=== PATIENT | female | born 1940 | race Caucasian/White ===

== ENCOUNTER → 2023-10-13 13:53 | Outpatient (REF) | payer MEDICARE, SELFPAY | LOC: HWRAD 13:53 | PROVIDERS: ATTENDING PHYSICIAN Student in an Organized Health Care Education/Training Program | DX: R10.31 Right lower quadrant pain (principal) | CPT/HCPCS: 74176 ==

== ENCOUNTER 2024-03-25 16:55 | Emergency (ER) | payer MEDICARE, SELFPAY ==
[2024-03-25 17:01] VITALS: BP 109/66
--- NOTE | 2024-03-25 17:05 | ED.GENMED ---
ED Provider Triage
<Merly Ramirez SUPERINTENDENT MAINTENANCE - Last Filed: 03/25/24 17:16>
-
Patient seen by provider in Triage?: Seen in Triage
Attestation: A medical screening examination has been initiated by a qualified medical provider. Based on the assessment performed at this time, it has been determined that an emergent medical condition may exist and the patient has been informed
that further medical evaluation and possible additional diagnostic testing may be needed.
HPI: 83-year-old female with abdominal pain since 2021, here today sent by PCP Dr. Sher and sent here for 'my intestines are not moving and whenever I try to eat abdominal pain starts and abdomen gets hard.' States has to take laxatives to have
BM. Last BM 3 days ago after double dose MOM. Has had intermittent nausea, no vomiting.
GENERAL: Alert , in no apparent distress
EYE: No visual abnormalities.
NECK: Trachea midline
ENT: No visible abnormalities.
LUNGS: No acute respiratory distress
NEUROLOGICAL: Alert and oriented
SKIN: Skin intact. No visible changes.
MUSCULOSKELETAL: Moving extremities normally
PSYCH: Normal and appropriate interaction.
This is a medical evaluation conducted in person to initiate diagnostic evaluation and provide initial therapeutics. Please see further documentation by the treating clinician.
History of Present Illness
<Merly Ramirez SUPERINTENDENT MAINTENANCE - Last Filed: 03/25/24 17:16>
General
Chief Complaint: Abdominal Pain
Time Seen by Provider: 03/25/24 19:28
<RENAY Wood - Last Filed: 03/25/24 22:34>
General
Source: patient
Exam Limitations: none
History of Present Illness
History of Present Illness:
This is a 83 year old female that comes in with c/o constipation. States that she has had constipation issues since she was in grade school. States that for the past 2 months it has gotten worse. States that she feels like nothing is moving. States
that she gets a Knife like pain in the right sided of the abd, States that she is from [place] and today she sent to see a doctor at [facility] and also a [employer] physician. States that she was told to come to the ER as over the past 3 days her
pain has gotten worse. States that the last night she remembers having a normal BM was 6-7 months ago. States that she just has diarrhea. States that she has also felt nauseated. Denies any fever, chills, chest pain, SOB, vomiting, headache,
dizziness, urinary burning.
Past History
<RENAY Wood - Last Filed: 03/25/24 22:34>
Past History
ED Past Medical History: Other (Constipation)
ED Past Surgical History: Appendectomy and Gynecological (Right ovary removed)
Social History
Tobacco: Non-smoker
Alcohol: None
Personal:
Living: alone
Review of Systems
<RENAY Wood - Last Filed: 03/25/24 22:34>
Review of Systems
All Other Systems: ROS reviewed and negative except as documented in HPI and ROS
Constitutional: Reports no symptoms; Denies fever or chills
EENT: Reports no symptoms
Respiratory: Reports no symptoms; Denies cough or trouble breathing
Cardiac: Reports no symptoms; Denies chest pain
ABD/GI: Reports abdominal pain, nausea and diarrhea; Denies vomiting
: Reports no symptoms; Denies dysuria, frequency or urgency
Musculoskeletal: Reports no symptoms
Skin: Reports no symptoms
Neurological: Reports no symptoms; Denies dizzy or headache
Psychiatric: Reports no symptoms
Phy Exam
<RENAY Wood - Last Filed: 03/25/24 22:34>
General Physical Exam
General Presentation: no apparent distress
General age: appears stated age
General Skin: warm and dry
General Habitus: elderly
General Mental: alert
General Hydration: dry mucous membranes
ENT Exam
ENT Exam: TM's normal, pharynx normal and neck supple
Eye Exam
Eye Exam: EOMI
Cardiovascular Exam
Cardiovascular Exam: regular rate/rhythm, no edema and normal peripheral pulses
Pulmonary Exam
Pulmonary Exam: lungs clear, no respiratory distress, no rales, chest non tender, no crackles, no rhonchi, no wheezing and no cough
Gastrointestinal Exam
Gastrointestinal Exam: normal bowel sounds, soft, no organomegaly, no pulsatile mass, non distended and tender (Right sided abd tenderness with palpation)
Musculoskeletal Exam
Musculoskeletal Exam: full ROM and no edema
Skin Exam
Skin Exam: normal color, warm/dry, no rash and no petechia
Psychiatric Exam
Psychiatric Exam: normal mood/affect
Course
<Merly Ramirez NP - Last Filed: 03/25/24 17:16>
Orders/Labs/Results
Orders:
Orders
03/25/24 17:06
Iohexol [Omnipaque] See Protocol PO NOW STA
03/25/24 17:07
CT Abd/pel (oral only)-[facility] Only Urgent
Comment: allergic to IV contrast - anaphylaxis
Reason For Exam: Righ abd pain.
03/25/24 17:14
Complete Blood Count/With Diff Urgent
Comprehensive Metabolic Panel Urgent
Lipase Urgent
03/25/24 19:36
Urinalysis Reflex To Culture Urgent
Date Specimen was Collected: 03/25/24
Time Specimen was Collected: 19:35
Urine Microscopic Reflex Cult Urgent
03/25/24 21:30
Enema- Treatment ONCE
Type: Milk of Molasses
Abnormal Lab Results
03/25/24 03/25/24
17:14 19:36
MCHC 32.6 L g/dL
(33.0-37.0)
MPV 11.0 H fL
(7.4-10.4)
Creatinine 1.4 H mg/dL
(0.6-1.0)
Glucose 106 H mg/dl
(70-99)
Leukocyte Esterase Rfl Trace A
(Negative)
03/25/24 17:14
03/25/24 17:14
Vital Signs
Initial and Last Documented VS:
Initial Vital Signs
Temp Pulse Resp BP Pulse Ox
98.4 F 80 18 109/66 96
03/25/24 17:01 03/25/24 17:01 03/25/24 17:01 03/25/24 17:01 03/25/24 17:01
Last Documented Vital Signs
Temp Pulse Resp BP Pulse Ox
97.7 F 71 18 119/63 98
03/25/24 19:30 03/25/24 19:30 03/25/24 17:01 03/25/24 21:13 03/25/24 21:16
<RENAY Wood - Last Filed: 03/25/24 22:34>
Orders/Labs/Results
Orders:
Orders
03/25/24 17:06
Iohexol [Omnipaque] See Protocol PO NOW STA
03/25/24 17:07
CT Abd/pel (oral only)-[facility] Only Urgent
Comment: allergic to IV contrast - anaphylaxis
Reason For Exam: Righ abd pain.
03/25/24 17:14
Complete Blood Count/With Diff Urgent
Comprehensive Metabolic Panel Urgent
Lipase Urgent
03/25/24 19:36
Urinalysis Reflex To Culture Urgent
Date Specimen was Collected: 03/25/24
Time Specimen was Collected: 19:35
Urine Microscopic Reflex Cult Urgent
03/25/24 21:30
Enema- Treatment ONCE
Type: Milk of Molasses
Abnormal Lab Results
03/25/24 03/25/24
17:14 19:36
MCHC 32.6 L g/dL
(33.0-37.0)
MPV 11.0 H fL
(7.4-10.4)
Creatinine 1.4 H mg/dL
(0.6-1.0)
Glucose 106 H mg/dl
(70-99)
Leukocyte Esterase Rfl Trace A
(Negative)
03/25/24 17:14
03/25/24 17:14
Cr slightly elevated. Glucose nonfasting. Lipase normal at 76, Urine negative for infection.
Vital Signs
Initial and Last Documented VS:
Initial Vital Signs
Temp Pulse Resp BP Pulse Ox
98.4 F 80 18 109/66 96
03/25/24 17:01 03/25/24 17:01 03/25/24 17:01 03/25/24 17:01 03/25/24 17:01
Last Documented Vital Signs
Temp Pulse Resp BP Pulse Ox
97.7 F 71 18 119/63 98
03/25/24 19:30 03/25/24 19:30 03/25/24 17:01 03/25/24 21:13 03/25/24 21:16
<RENAY Wood - Last Filed: 03/25/24 22:34>
MDM/Problems Addressed
Differential Diagnosis Includes:
Bowel obstruction. Adhesions
MDM/Problems Addressed:
This is a 83 year old female that comes in with c/o constipation. States that she just has diarrhea and has not have a normal stool in the past 6-7 months.
Will get labs and CT scan. Will give IV fluids and age urine.
Back into see patient. Explained that her CT scan does show constipation. Rectal exam done and there was not stool in the rectal vault. Will give patient a milk and molasses enema. Explained to patient that she really needs to get on a Bowl regiment
and may need to see the GI specialist for further evaluation.
Patient had Maximum results from enema. Will discharge home. Patient also states that the DRAPERY AND UPHOLSTERY ESTIMATOR gave her Magnesium tables to will hold off on magnesium Citrate.
Chronic conditions affecting care: Previous abdomnial surgery
Acute Exacerbation and/or Progression of Chronic Illness: Previous abdomnial surgery
<RENAY Wood - Last Filed: 03/25/24 22:34>
*Radiology
Radiology exam reviewed: radiology read reviewed (CT-Constipation with moderate colonic fecal burden. No bowel obstruction. NO lacute inflammatory process withint the abdomen or pelvis. No obstructing uropathy. )
*Pulse Oximetry
Patient hypoxic: no
*EKG
Interpreted by ED Provider?: NA
Rate: EKG- N/A
*Header Setup Operator Interpretation
Rate: Header Setup Operator- N/A
*Critical Care Note
Total Time (30-74mins, 75-104mins- exclusive of procedures): Not Applicable
ED Attending Note
<Merly Rmairez NP - Last Filed: 03/25/24 17:16>
-
Portions of this chart may have been created with voice recognition software.� Occasional wrong word or��sound alike� substitutions may have occurred due to the inherent limitations of voice recognition software.
Discharge Plan
Departure
Patient Disposition: Home (Routine Discharge)
Date of Disposition: 03/25/24
Time of Disposition: 22:29
Patient with high blood pressure during this ER visit?: No
Condition: Good
Covid-19: Not Applicable
Discharge Problem:
Constipation, chronic
Instructions: Constipation, Adult (DC)
Referrals:
Jatinder Burr DO [Family Provider] - Call in 1-3 days for appt
Napoleon Marlow DO [Active] - Call in 1-3 days for appt
Activity Restrictions/Additional Instructions:
As discussed, your CT scan shows that you are constipated. Your urine is negative for infection. Please increase your water intake to 8-8oz glasses daily. You may also try Prune juice mixed with apple juice in equal amounts and heat and drink daily.
Please follow up with the GI specialist for further evaluation and a possible bowel regiment. You have been given an enema here. IF YOU HAVE ANY OTHER CONCERNS PLEASE RETURN TO THE EMERGENCY ROOM.
Interventions
Interventions:
*Risk Screen - Suicide Last Done: 03/25/24 17:01
*General Assessment Last Done: 03/25/24 17:01
*Neglect/Abuse Screening Last Done: 03/25/24 17:01
ED- Fall Risk Assessment Last Done: 03/25/24 21:16
*ED COVID-19 Vaccine History Last Done: 03/25/24 21:16
IT-Wjtcai-Wqomerehqk Assessment Last Done: 03/25/24 21:16
Discharge Date and Time
Print Language: OMANI
[2024-03-25] MEDS: OMNIPAQUE 50 ML PO (17:17)
[2024-03-25 17:27] LABS: % Basophils 0.6 % (0-2); % Eosinophils 1.1 % (0-6); % Immature Granulocytes 0.2 % (0-0.5); % Lymphocytes 24.8 % (20.5-51.1); % Monocytes 7.6 % (1.7-9.3); % Neutrophils 65.7 % (42.2-75.2); Absolute Eosinophils 0.1 10^3/uL (0-0.7); Absolute Lymphocytes 1.5 10^3/uL (1.2-3.4); Absolute Monocytes 0.5 10^3/uL (0.1-0.6); Absolute Neutrophils 4.1 10^3/uL (1.4-6.5); Hematocrit 41.4 % (37.0-47.0); Hemoglobin 13.5 g/dL (12.0-16.0); Mean Corp Hgb Conc. 32.6 g/dL (33.0-37.0); Nucleated Red Blood Cells % 0 %; Platelet Count 187 10^3/uL (130-400); Red Blood Cell Count 4.36 10^6/uL (4.20-5.40); Red Cell Dist. Width 12.6 % (11.5-14.5); White Blood Cell Count 6.2 10^3/uL (4.8-10.8)
[2024-03-25 17:38] LABS: ALT (SGPT) 15 U/L (0-35); AST (SGOT) 21 U/L (14-36); Alkaline Phosphatase 55 U/L (38-126); Blood Urea Nitrogen 17 mg/dl (7-17); Calcium 8.8 mg/dl (8.4-10.2); Carbon Dioxide 28 mmol/L (22-30); Chloride 104 mmol/L (98-107); Glucose 106 mg/dl (70-99); Lipase 76 U/L (23-300); Potassium 4.6 mmol/L (3.5-5.1); Sodium 140 mmol/L (135-145); Total Bilirubin 0.9 mg/dl (0.2-1.3); Total Protein 6.3 g/dl (6.3-8.2); eGFR 37.56
[2024-03-25 19:44] VITALS: BP 132/51
[2024-03-25 19:59] LABS: Urine Albumin Negative (Neg - Trace); Urine Bilirubin Negative (Negative); Urine Character Clear (Clear); Urine Color Yellow; Urine Glucose Negative (Negative); Urine Ketone Negative (Negative); Urine Leukocyte Trace (Negative); Urine Nitrite Negative (Negative); Urine Occult Blood Negative (Negative); Urine Urobilinogen Negative (Neg - 1+)
[2024-03-25 20:00] VITALS: BP 114/59
[2024-03-25 20:54] LABS: Urine Red Blood Cell 0-2 /HPF (0-2); Urine White Cell 0-2 /HPF (0-5)
[2024-03-25 21:13] VITALS: BP 119/63
[2024-03-25 21:14] VITALS: BMI 18.8
== END 2024-03-25 22:41 | disposition home or self-care (01) ==
LOC: EMR 16:55
PROVIDERS: Registered Nurse; EMERGENCY PHYSICIAN Emergency Medicine; FAMILY PHYSICIAN Student in an Organized Health Care Education/Training Program
DX: K59.09 Other constipation (principal); Z90.49 Acquired absence of other specified parts of digestive tract; Z90.721 Acquired absence of ovaries, unilateral
CPT/HCPCS: 99284; 74176; 80053; 81003; 81015; 83690; 85025

== ENCOUNTER 2024-03-28 15:17 | Emergency (ER) | payer MEDICARE, SELFPAY ==
[2024-03-28 15:37] VITALS: BP 146/75
--- NOTE | 2024-03-28 15:38 | ED.GENMED ---
ED Provider Triage
<Beverly Orlando PA-C - Last Filed: 03/28/24 15:52>
-
Patient seen by provider in Triage?: Seen in Triage
Attestation: A medical screening examination has been initiated by a qualified medical provider. Based on the assessment performed at this time, it has been determined that an emergent medical condition may exist and the patient has been informed
that further medical evaluation and possible additional diagnostic testing may be needed.
HPI: 83yoF here with constipation. Seen in ED 3 days ago for the same. CT showed moderate stool burden but otherwise negative. Had a BM after molasses enema but no BM since. C/o new LLQ pain.
GENERAL: Alert , in no apparent distress
EYE: No visual abnormalities.
NECK: Trachea midline
ENT: No visible abnormalities.
LUNGS: No acute respiratory distress
NEUROLOGICAL: Alert and oriented
SKIN: Skin intact. No visible changes.
MUSCULOSKELETAL: Moving extremities normally
PSYCH: Normal and appropriate interaction.
This is a medical evaluation conducted in person to initiate diagnostic evaluation and provide initial therapeutics. Please see further documentation by the treating clinician.
Abdominal labs ordered. Will defer repeat imaging in triage as she had a CT 3 days ago.
History of Present Illness
<Beverly Orlando PA-C - Last Filed: 03/28/24 15:52>
General
Chief Complaint: Bowel Problem
Time Seen by Provider: 03/28/24 17:47
<Cole Sims PA-C - Last Filed: 03/28/24 21:54>
General
Source: patient
Exam Limitations: none
History of Present Illness
History of Present Illness:
83-year-old female presents with increased abdominal pain and distention since visit 4 days ago. She had constipation. When she was here last she received an enema and had a large bowel movement. Since then she has not had a bowel movement but
has increased pain and distention. She denies nausea or vomiting or fever. 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 She tried using saline enema x 2 today without any relief. She notes a bulge appearance to her abdomen. No
chest pain. No other complaints at this time
Past History
<Beverly Orlando PA-C - Last Filed: 03/28/24 15:52>
Past History
ED Past Medical History: Other (Constipation)
ED Past Surgical History: Appendectomy and Gynecological (Right ovary removed)
Social History
Tobacco: Non-smoker
Alcohol: None
Personal:
Living: alone
Phy Exam
<Cole Sims PA-C - Last Filed: 03/28/24 21:54>
Physical Exam
Physical Exam:
General: Well-appearing female no respiratory distress
HEENT: Normocephalic atraumatic
Heart: Regular rate and rhythm no murmurs
Lungs: Clear no wheeze
Abdomen is soft distended tender to the right and left lower abdomen.
Extremities: No cyanosis
Course
<Beverly Orlando PA-C - Last Filed: 03/28/24 15:52>
Orders/Labs/Results
Orders:
Orders
03/28/24 16:14
Complete Blood Count/With Diff Urgent
Comprehensive Metabolic Panel Urgent
Lipase Urgent
03/28/24 18:11
CT Abd/pel (oral only)-[facility] Only Urgent
Comment:
Reason For Exam: abdominal pain
Iohexol [Omnipaque] See Protocol PO NOW STA
Abnormal Lab Results
03/28/24
16:14
MCHC 32.1 L g/dL
(33.0-37.0)
MPV 11.0 H fL
(7.4-10.4)
Potassium 5.6 H mmol/L
(3.5-5.1)
BUN 19 H mg/dl
(7-17)
Creatinine 1.1 H mg/dL
(0.6-1.0)
Total Protein 6.2 L g/dl
(6.3-8.2)
03/28/24 16:14
03/28/24 16:14
Vital Signs
Initial and Last Documented VS:
Initial Vital Signs
Temp Pulse Resp BP Pulse Ox
97.8 F 70 20 146/75 100
03/28/24 15:37 03/28/24 15:37 03/28/24 15:37 03/28/24 15:37 03/28/24 15:37
Last Documented Vital Signs
Temp Pulse Resp BP Pulse Ox
97.8 F 66 18 156/81 100
03/28/24 15:37 03/28/24 20:11 03/28/24 20:11 03/28/24 20:11 03/28/24 15:37
<Cole Sims PA-C - Last Filed: 03/28/24 21:54>
Orders/Labs/Results
Orders:
Orders
03/28/24 16:14
Complete Blood Count/With Diff Urgent
Comprehensive Metabolic Panel Urgent
Lipase Urgent
03/28/24 18:11
CT Abd/pel (oral only)-[facility] Only Urgent
Comment:
Reason For Exam: abdominal pain
Iohexol [Omnipaque] See Protocol PO NOW STA
Abnormal Lab Results
03/28/24
16:14
MCHC 32.1 L g/dL
(33.0-37.0)
MPV 11.0 H fL
(7.4-10.4)
Potassium 5.6 H mmol/L
(3.5-5.1)
BUN 19 H mg/dl
(7-17)
Creatinine 1.1 H mg/dL
(0.6-1.0)
Total Protein 6.2 L g/dl
(6.3-8.2)
03/28/24 16:14
03/28/24 16:14
Vital Signs
Initial and Last Documented VS:
Initial Vital Signs
Temp Pulse Resp BP Pulse Ox
97.8 F 70 20 146/75 100
03/28/24 15:37 03/28/24 15:37 03/28/24 15:37 03/28/24 15:37 03/28/24 15:37
Last Documented Vital Signs
Temp Pulse Resp BP Pulse Ox
97.8 F 66 18 156/81 100
03/28/24 15:37 03/28/24 20:11 03/28/24 20:11 03/28/24 20:11 03/28/24 15:37
<Cole Sims PA-C - Last Filed: 03/28/24 21:54>
MDM/Problems Addressed
Differential Diagnosis Includes:
Increased abdominal pain since visit 3 to 4 days ago. Differential could include persistent constipation versus bowel obstruction versus colitis. Given her level pain we will have to repeat CT today. She has anaphylaxis to IV contrast. Will do
CT with oral contrast
<Cole Sims PA-C - Last Filed: 03/28/24 21:54>
*Critical Care Note
Total Time (30-74mins, 75-104mins- exclusive of procedures): Not Applicable
<Cole Sims PA-C - Last Filed: 03/28/24 21:54>
Update Note
Update Note:
CT shows decreased stool burden since last imaging study no sign of obstruction. Patient has had multiple bowel movements since arrival and since drinking the oral contrast. Pain is improved. Patient reassured. She has an appointment with GI
moving forward. No indication for any further intervention or admission. Stable for discharge
ED Attending Note
<Beverly Orlando PA-C - Last Filed: 03/28/24 15:52>
-
Portions of this chart may have been created with voice recognition software.� Occasional wrong word or��sound alike� substitutions may have occurred due to the inherent limitations of voice recognition software.
Discharge Plan
Departure
Patient Disposition: Home (Routine Discharge)
Date of Disposition: 03/28/24
Time of Disposition: 21:53
Patient with high blood pressure during this ER visit?: No
Discharge Problem:
Constipation
Instructions: Constipation, Adult (DC)
Referrals:
Jatinder Burr, [Family Provider] -
Activity Restrictions/Additional Instructions:
Continue current bowel regimen. Decrease bowel regimen as needed for loose stools. Follow-up with GI as planned next week. Return if worse
Interventions
Interventions:
*Risk Screen - Suicide Last Done: 03/28/24 15:37
*General Assessment Last Done: 03/28/24 15:37
*Neglect/Abuse Screening Last Done: 03/28/24 15:37
*ED COVID-19 Vaccine History Last Done: 03/28/24 15:37
UV-Twxhsi-Qtbqpmxlir Assessment Last Done: 03/28/24 18:25
Discharge Date and Time
Print Language: TAMAZIGHT
[2024-03-28 16:37] LABS: % Basophils 0.8 % (0-2); % Eosinophils 1.1 % (0-6); % Immature Granulocytes 0.2 % (0-0.5); % Lymphocytes 24.9 % (20.5-51.1); % Monocytes 6.4 % (1.7-9.3); % Neutrophils 66.6 % (42.2-75.2); Absolute Eosinophils 0.1 10^3/uL (0-0.7); Absolute Lymphocytes 1.3 10^3/uL (1.2-3.4); Absolute Monocytes 0.3 10^3/uL (0.1-0.6); Absolute Neutrophils 3.5 10^3/uL (1.4-6.5); Hematocrit 39.9 % (37.0-47.0); Hemoglobin 12.8 g/dL (12.0-16.0); Mean Corp Hgb Conc. 32.1 g/dL (33.0-37.0); Mean Corpuscular Hgb 30.5 pg (27.0-31.0); Nucleated Red Blood Cells % 0 %; Platelet Count 173 10^3/uL (130-400); Red Cell Dist. Width 12.9 % (11.5-14.5); White Blood Cell Count 5.3 10^3/uL (4.8-10.8)
[2024-03-28 16:42] LABS: ALT (SGPT) 13 U/L (0-35); AST (SGOT) 17 U/L (14-36); Alkaline Phosphatase 45 U/L (38-126); Blood Urea Nitrogen 19 mg/dl (7-17); Calcium 9.3 mg/dl (8.4-10.2); Carbon Dioxide 28 mmol/L (22-30); Chloride 107 mmol/L (98-107); Glucose 91 mg/dl (70-99); Potassium 5.6 mmol/L (3.5-5.1); Sodium 138 mmol/L (135-145); Total Bilirubin 0.8 mg/dl (0.2-1.3); Total Protein 6.2 g/dl (6.3-8.2); eGFR 50.17
[2024-03-28 16:52] LABS: Lipase 71 U/L (23-300)
[2024-03-28 18:17] VITALS: BP 155/77
[2024-03-28] MEDS: OMNIPAQUE 50 ML PO (18:22)
[2024-03-28 20:11] VITALS: BP 156/81
[2024-03-28 22:00] VITALS: BP 134/82
== END 2024-03-28 22:02 | disposition home or self-care (01) ==
LOC: EMR 15:17
PROVIDERS: Physician Assistant; EMERGENCY PHYSICIAN Emergency Medicine; FAMILY PHYSICIAN Student in an Organized Health Care Education/Training Program
DX: K59.00 Constipation, unspecified (principal); Z90.49 Acquired absence of other specified parts of digestive tract
CPT/HCPCS: 99284; 74176; 80053; 83690; 85025

== ENCOUNTER 2024-04-12 06:29 | Day surgery (SDC) | payer MEDICARE, SELFPAY | END 2024-04-12 10:45 | disposition home or self-care (01) | LOC: GI 06:29 | PROVIDERS: ATTENDING PHYSICIAN Internal Medicine Gastroenterology | DX: K59.04 Chronic idiopathic constipation (principal); K64.8 Other hemorrhoids; K57.30 Diverticulosis of large intestine without perforation or abscess without bleeding; D12.2 Benign neoplasm of ascending colon; D12.5 Benign neoplasm of sigmoid colon | CPT/HCPCS: 45385; 45380; 88305 ==